=== PATIENT | male | born 1945 | race Caucasian/White ===

== ENCOUNTER 2018-03-26 05:34 | Emergency (ER) | payer OTHER ==
[~2018-03-26] VITALS: Ht 167.6 cm; Wt 65.8 kg
[~2018-03-26 05:34] MED LIST: ALLEGRA30 MG PO; ATACAND HCT 31 UDTA1 PO; KLONOPIN0.125 MG/T PO; LIPITOR20 MG PO; SUPPORT118 ML PO; ZOCOR20 MG PO; ZYRTEC5 MG PO
[2018-03-26] MEDS ORDERED: LOSARTAN POTASS25 MG (05:53)
== END 2018-03-26 14:26 | disposition home or self-care (01) ==
LOC: ER 05:34
DX: K52.89 Other specified noninfective gastroenteritis and colitis (principal); K21.9 Gastro-esophageal reflux disease without esophagitis

== ENCOUNTER 2021-06-13 06:49 | Day surgery (SDC) | payer OTHER ==
[~2021-06-13 06:49] MED LIST changes: +CLONAZEPAM0.5 MG PO; +GABAPENTIN400 MG PO; +LOSARTAN POTASS25 MG; +XANAX XR0.5 MG PO; +ZYRTEC10 M3 PO
[2021-06-13] MEDS ORDERED: PERCOCET 5-3251 EACH PO (17:28)
[2021-06-13] MEDS ORDERED: POLY119PG PO (17:28)
== END 2021-06-13 21:35 | disposition home or self-care (01) ==
LOC: CIR.AMB 06:49
PROVIDERS: ATTEND Surgery
DX: K40.90 Unilateral inguinal hernia, without obstruction or gangrene, not specified as recurrent (principal); I10 Essential (primary) hypertension; G47.33 Obstructive sleep apnea (adult) (pediatric); Z99.89 Dependence on other enabling machines and devices; F12.90 Cannabis use, unspecified, uncomplicated; K21.9 Gastro-esophageal reflux disease without esophagitis; N28.9 Disorder of kidney and ureter, unspecified; E78.5 Hyperlipidemia, unspecified

== ENCOUNTER 2021-07-19 08:10 | Outpatient (CLI) | payer OTHER ==
[~2021-07-19 08:10] MED LIST changes: +PERCOCET 5-3251 EACH PO; +POLY119PG PO
== END 2021-07-19 08:17 | disposition home or self-care (01) ==
LOC: RX STUDY 08:10
PROVIDERS: ATTEND Internal Medicine Gastroenterology
DX: R13.14 Dysphagia, pharyngoesophageal phase (principal)

== ENCOUNTER → 2021-12-04 | Emergency (ER) | payer OTHER ==
[~2021-12-04] VITALS: Ht 167.6 cm; Wt 65.8 kg
== END | disposition left against medical advice (07) ==
LOC: ER 17:37
DX: Z53.21 Procedure and treatment not carried out due to patient leaving prior to being seen by health care provider (principal)